=== PATIENT | female | born 1950 | race Asian ===

== ENCOUNTER 2017-09-27 09:15 | Outpatient (RCR) | payer MEDICARE, MEDICAID | END 2017-10-20 | disposition home or self-care (01) | LOC: PTY 09:15 | DX: M75.02 Adhesive capsulitis of left shoulder (principal); M75.102 Unspecified rotator cuff tear or rupture of left shoulder, not specified as traumatic; M54.10 Radiculopathy, site unspecified; M79.605 Pain in left leg | CPT/HCPCS: 97110; 97112; 97140; 97162; G8984; G8985 ==

== ENCOUNTER 2017-10-27 09:15 | Outpatient (RCR) | payer MEDICARE, MEDICAID | END 2017-11-20 | disposition home or self-care (01) | LOC: PTY 09:15 | DX: M75.02 Adhesive capsulitis of left shoulder (principal); M75.102 Unspecified rotator cuff tear or rupture of left shoulder, not specified as traumatic | CPT/HCPCS: 97110; 97140; G8984; G8985 ==

== ENCOUNTER 2017-11-23 09:15 | Outpatient (RCR) | payer MEDICARE, MEDICAID | END 2017-12-20 | disposition home or self-care (01) | LOC: PTY 09:15 | DX: M75.02 Adhesive capsulitis of left shoulder (principal); M75.102 Unspecified rotator cuff tear or rupture of left shoulder, not specified as traumatic; M79.7 Fibromyalgia; Z87.820 Personal history of traumatic brain injury ==

== ENCOUNTER 2017-12-27 14:30 | Outpatient (RCR) | payer MEDICARE, MEDICAID | END 2018-01-20 | disposition home or self-care (01) | LOC: PTY 14:30 | DX: M75.02 Adhesive capsulitis of left shoulder (principal); M75.102 Unspecified rotator cuff tear or rupture of left shoulder, not specified as traumatic | CPT/HCPCS: 97110; 97140; G8985; G8986 ==